=== PATIENT | male | born 1995 | race Caucasian/White ===

== ENCOUNTER 2016-10-09 13:06 | Observation (INO) | payer OTHER ==
--- NOTE | ~2016-10-09 | DS ---
Unit #: [id number] #: [id number] Patient: ELVIRA GASTELUM [id number] [address] [address] [id number] I MR#: [id number] NAME: ELVIRA GASTELUM ROOM: 229 Age: 21 Sex: M Admission Date: 10/09/2016 : 1995 Discharge Date: 10/11/2016 Attending Physician: Ovidio Negrete M.D. Referring Physician: Marcy Macias M.D. Primary Care Physician: Primary Care Physician No DISCHARGE SUMMARY ADDENDUM After the patient was discharged, the patient had an additional episode of vomiting and discharge was held. Dr. Martinez of Psychiatry was consulted for the patient's ongoing addiction to marijuana causing the hyperemesis. Dr. Martinez had recommended outpatient gallery assistant program to assist with the marijuana abuse and had prescribed Vistaril 25 mg orally t.i.d., prescription for 90 was given as well as Thorazine 25 mg orally b.i.d., prescription for 60 was given. The following day, the patient stated that he was still having vomiting, although there was no witnessed vomiting. The patient's lab remained unremarkable except for potassium that was slightly low at 3.1. The patient received 40 mEq for replacement and had received further advancement of his diet. The patient will be discharged home. Discharged to follow up with his family doctor. Follow up with Dr. Bonds, calibration technician and to be compliant with the outpatient marijuana usage. DISCHARGE CONDITION Stable. DISCHARGE MEDICATIONS As stated above with the addition of Vistaril and Thorazine. Dictated by... Khushbu Noel PA-C for Yeyo Upton/kamilah TD: 10/12/2016 07:32 JOB #: [id number] DISCHARGE SUMMARY Page 1 of 1 X X DISCHARGE SUMMARY
--- NOTE | ~2016-10-09 | DS ---
Unit #: [id number] #: [id number] Patient: ELVIRA GASTELUM [id number] [address] [address] [id number] I MR#: [id number] NAME: ELVIRA GASTELUM ROOM: 229 Age: 21 Sex: M Admission Date: 10/09/2016 : 1995 Discharge Date: Attending Physician: Ovidio Negrete M.D. Referring Physician: Marcy Macias M.D. DISCHARGE SUMMARY DISCHARGE DIAGNOSES 1. Cyclic nausea and vomiting. 2. Abdominal pain. 3. Marijuana usage. 4. Gastroesophageal reflux disease. 5. Leukocytosis. PROCEDURES None. CONSULTANTS None. DIAGNOSTIC STUDIES LABORATORY RESULTS: On the day of discharge, the patient's lab include glucose of 108, BUN 11, creatinine 0.9, sodium 138, potassium 3.7, chloride 108, CO2 of 20, calcium 8.8, total protein 6.4, albumin 3.9, total bilirubin 0.8, AST was 16, ALT 20, alkaline phosphatase 66. Lipase 45. CBC: WBC 14.6, RBC 5.02, hemoglobin 14.3, hematocrit 43.9, MCV 87.4, MCH is 28.5, MCHC 32.6, RDW is 13.7, platelets 322, MPV 8.5. Urinalysis unremarkable. Urine drug screen was positive for marijuana only. Blood culture at this time has no growth. Urine culture at this time has no growth. HOSPITAL COURSE The patient is a 21-year-old male with past medical history of cyclical vomiting, GERD, who was transferred from [facility] due to intractable vomiting. The patient states that the vomiting started on day of admission and apparently had smoked marijuana. He has had 7 to 8 bouts of nonbloody emesis. He also reports cramping abdominal pain symptoms similar to when he had smoked marijuana in the past. In the emergency department, he was given 10 mg of Reglan, 2 L of saline, 8 mg of Zofran, 25 mg of Phenergan, 25 mg of Benadryl, and 1 mg of Ativan, and was transferred to [facility] for high level care. The patient was treated conservatively for nausea, vomiting, abdominal pain. His labs are all unremarkable as detailed above. Both Dr. Monzon and myself counseled the patient with regard to cannabis-induced nausea and vomiting, and he voiced understanding. He does admit to thinking that this is the cause of his vomiting and states that he is trying to quit and he will continue to try. At this time, the patient is tolerating a clear liquid. I am advancing him to a low-residue diet. If the patient tolerates the diet, the patient will be discharged home. The patient tells me that he does follow up with Dr. Johny Bonds outpatient and we Unit #: [id number] #: [id number] Patient: ELVIRA GASTELUM will make a followup appointment with him. Discharge condition is stable. Discharge diet, resumes regular diet as was prior to hospitalization. Activities, no restriction on activities. Ambulate everyday as tolerated. DISCHARGE MEDICATIONS Protonix 40 mg orally daily; Zofran 4 mg orally dissolving tablets every 6 hours as needed for nausea, vomiting, prescription for 16 was given. Dictated by... Khushbu Noel PA-C for Yeyo Upton/kamilah TD: 10/11/2016 02:54 JOB #: [id number] DISCHARGE SUMMARY Page 1 of 1 X X DISCHARGE SUMMARY
--- NOTE | ~2016-10-09 | CO ---
Unit #: [id number] #: [id number] Patient: GEO LANCASTER [id number] [facility] [address] [address] [facility]. [place], [place] [address] [id number] I MR#: [id number] NAME: EGO LANCASTER ROOM: 229 Age: 21 Sex: M Admission Date: 10/09/2016 : 1995 Attending Physician: Ovidio Negrete M.D. Primary Care Physician: No Primary Care Physician Consultation Date: 10/11/2016 CONSULTATION REPORT REASON FOR CONSULTATION Marijuana abuse, vomiting, anxiety. HISTORY OF PRESENT ILLNESS Mr. Geo Lancaster is a 21-year-old male seen on 10/11/16 in room 229 at [facility] with the chief complaint of marijuana abuse, vomiting, anxiety. The patient reported that he just threw up recently, having dry heaves and vomiting. The patient admitted using marijuana on a daily basis. The patient reported history of cyclical vomiting, GERD. The patient also reported having severe anxiety but denied any suicidal or homicidal ideation. Denied any psychotic symptoms. PAST PSYCHIATRIC HISTORY Remarkable for history of cannabis abuse and severe anxiety. No history of any inpatient treatment or suicidal attempt. MEDICAL HISTORY Remarkable for history of cyclical vomiting and GERD. MEDICATIONS None. FAMILY HISTORY/SOCIAL HISTORY Good support system. No history of any abuse but history of substance abuse, as mentioned above. REVIEW OF SYSTEMS A complete review of systems is remarkable for vomiting, anxiety. MENTAL STATUS EXAMINATION General appearance - Patient is dressed casually. Attention span, concentration - Fair. Speech - Regular rate, coherent. Oriented to time, place and person. Mood and affect - Sad, dysphoric. Thought process - Coherent. Thought content - The patient denied any thoughts of harming self or others or any psychotic symptoms. Recent and remote memory - Poor. Language - Able to name objects, repeat phrases. Fund of knowledge - Fair. Insight and judgment - Fair to slightly impaired. DIAGNOSIS 1. PSYCHIATRIC: Cannabis abuse, severe, F12.20; anxiety disorder, NOS, agoraphobia with panic disorder, F40.01. 2. SECONDARY DIAGNOSIS: Deferred 3. MEDICAL DIAGNOSIS: Cyclical vomiting, GERD. 4. STRESSOR: Psychosocial stressors. (1) . Unit #: [id number] #: [id number] Patient: GEO LANCASTER ASSESSMENT AND PLAN 1. Supportive psychotherapy and psychoeducation provided to the patient. 2. Educated about benefits and side effects of medication and course and prognosis of illness. 3. Advised Vistaril 25 mg t.i.d. for anxiety and Thorazine 25 mg b.i.d. to help with mood symptoms, as well as vomiting. The patient was advised to follow up at CDIP program at [facility] and also given the Crisis Line number, [phone]. Please feel free to call with any questions, telephone number . Dictated by... Yeyo Dimas/joe TD: 10/13/2016 15:14 JOB #: [id number] CONSULTATION REPORT Page 1 of 1 X Nam Martinez MD X CONSULTATION REPORT
--- NOTE | ~2016-10-09 | HP ---
Unit #: [id number] #: [id number] Patient: ELVIRA GASTELUM [id number] [facility] [address]. [place], [place] [address] [id number] I MR#: [id number] NAME: ELVIRA GASTELUM ROOM: 229 Age: 21 Sex: M Admission Date: 10/09/2016 : 1995 Attending Physician: Jyotsna Monzon M.D. Referring Physician: Marcy Macias M.D. Primary Care Physician: Primary Care Physician No HISTORY AND PHYSICAL CHIEF COMPLAINT Vomiting today. HISTORY OF PRESENT ILLNESS The patient is a 21-year-old male with past medical history of cyclic vomiting, GERD, who presented to [facility] for evaluation of the above. The patient states that he started vomiting this morning. He apparently smoked marijuana yesterday. He reports 7 to 8 bouts of nonbloody emesis. He also reports crampy abdominal pain. These symptoms are similar to when he has smoked marijuana in the past. In the emergency department, he was given 10 mg of Reglan, 2 liters of normal saline, a total of 8 mg of Zofran, 25 mg of Phenergan, 25 mg of Benadryl, and 1 mg of Ativan. He was transferred to [facility] for admission. PAST MEDICAL HISTORY 1. Admission to [facility] 07/05 through 07/06/2016 for intractable nausea and vomiting secondary to cyclic vomiting with marijuana hyperemesis and GERD contributing. 2. Cyclic vomiting. 3. GERD. PAST SURGICAL HISTORY EGD at [facility] (no records). ALLERGIES No known allergies. HOME MEDICATIONS Protonix 40 mg daily. SOCIAL HISTORY The patient lives with his girlfriend. He smokes marijuana. 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 FAMILY HISTORY Notable for his mother having diabetes. REVIEW OF SYSTEMS A complete review of systems is negative except as indicated in the HPI. The patient states that showering alleviates some of the nausea and Unit #: [id number] #: [id number] Patient: ELVIRA GASTELUM vomiting. PHYSICAL EXAMINATION VITAL SIGNS: Temperature 97.5, pulse 78, respirations 18, blood pressure 135/76. GENERAL: The patient is a male who is sleeping but wakes to voice. HEENT: Head is atraumatic. Mucous membranes are dry. NECK: Supple. Trachea is midline. LUNGS: Clear to auscultation bilaterally with no increased work of breathing. HEART: Regular rate and rhythm. ABDOMEN: Soft. He is mildly tender to palpation in the epigastric area. Bowel sounds present in all four quadrants. EXTREMITIES: Nontender with no pedal edema. NEUROLOGIC: Patient is awake and alert. He follows commands. PSYCHIATRIC: Mood and affect are normal. Patient is cooperative. SKIN OF EXAMINED AREAS: Warm and dry. DIAGNOSTIC STUDIES LABORATORY: Complete blood count notable for white blood cell count of 16.4, hemoglobin 17.4, hematocrit 52.3. Comprehensive metabolic panel notable for a glucose of 143, total protein 8.8, albumin 5.3, lipase 45. ASSESSMENT The patient is a 21-year-old male with: 1. Intractable nausea and vomiting. 2. Abdominal pain. 3. History of cyclic vomiting secondary to marijuana hyperemesis and gastroesophageal reflux disease. 4. Gastroesophageal reflux disease. 5. Marijuana use. 6. Leukocytosis. I suspect the patient is dehydrated. I do not see any source of infection. PLAN 1. Admit for observation to med-surg. 2. N.p.o. and will advanced to clear liquids as tolerated. 3. P.r.n. Zofran. 4. P.r.n. Phenergan. 5. P.r.n. Toradol. 6. assistant food service managermanager of production consult regarding marijuana use. 7. Check urinalysis and urine toxicology screen. 8. SCDs for DVT prophylaxis. 9. Repeat labs in the morning. 10. Additional workup and consultants based on above. 11. I encouraged marijuana cessation. Dictated by Jyotsna Monzon M.D. Unit #: [id number] #: [id number] Patient: ELVIRA GASTELUM SOURAV/irene TD: 10/09/2016 21:26 JOB #: [id number] HISTORY AND PHYSICAL Page 1 of 1 X Jyotsna Monzon MD HISTORY AND PHYSICAL
[2016-10-09 12:42] LABS: BASOPHIL# 0.1 X10e3 (0-0.3); BASOPHIL% 0.5 % (0-2.5); EOSINOPHIL# 0.1 X10e3 (0-0.7); EOSINOPHIL% 0.6 % (0.0-7.0); HEMATOCRIT 52.3 % (38.0-50.0); HEMOGLOBIN 17.4 gm/dL (13.0-16.0); LYMPHOCYTE# 1.8 X10e3 (1.0-3.5); LYMPHOCYTE% 11.2 % (17.0-45.0); MEAN CELL VOLUME 86.4 FL (83-96); MEAN CORPUSCULAR HEMOGLOBIN 28.8 PG (28-34); MEAN CORPUSCULAR HGB CONC 33.3 g/dL (30-36); MEAN PLATELET VOLUME 8.3 FL (6.5-11.5); MONOCYTE# 0.7 X10e3 (0-1.0); MONOCYTE% 4.4 % (3.0-12.0); NEUTROPHIL# 13.7 X10e3 (1.5-7.1); NEUTROPHIL% 83.3 % (40-75); PLATELET COUNT 333 X10e3 (140-420); RED BLOOD COUNT 6.05 X10e (3.90-5.60); RED CELL DISTRIBUTION WIDTH 13.8 % (11.0-15.5); WHITE BLOOD COUNT 16.4 X10e3 (4.0-10.5)
[2016-10-09 12:47] LABS: DIFF IND NO
[2016-10-09 13:01] LABS: ALBUMIN SERUM 5.3 g/dL (3.5-5.0); BILIRUBIN, DIRECT 0.1 mg/dL (0.0-0.2); BILIRUBIN,INDIRECT 0.6 mg/dL (0.0-0.9); BILIRUBIN,TOTAL 0.7 mg/dL (0.2-2.0); BUN/CREATININE RATIO 16.66; CALCIUM SERUM 9.5 mg/dL (8.4-10.2); CREATININE SERUM 0.9 mg/dL (0.6-1.4); GLOM FILT RATE Estimated 120.8 mL/min (>60); POTASSIUM 4.1 mmol/L (3.5-5.1); PROTEIN TOTAL SERUM 8.8 g/dL (6.0-8.3)
[~2016-10-09 13:06] MED LIST: ACETAMINOPHEN PO; PHENERGAN25 M1 DOB; PHENERGAN25 M1 PO; PROTONIX PO; PROTONIX20 MG PO; ZOFRAN PO
[2016-10-10 01:39] LABS: URINE SOURCE CLEAN CATCH
[2016-10-10 01:44] LABS: URINE APPEARANCE CLEAR; URINE BILIRUBIN NEG (NEG); URINE BLOOD NEG (NEG); URINE COLOR YELLOW; URINE GLUCOSE NEG (NEG); URINE KETONE 3+ (NEG); URINE LEUKOCYTE ESTERASE NEG (NEG); URINE NITRATE NEG (NEG); URINE PH 5.5 (5-8); URINE PROTEIN NEG (NEG); URINE SPECIFIC GRAVITY 1.023 (1.003-1.035); URINE UROBILINOGEN 0.2 MG/DL (NEG)
[2016-10-10 01:54] LABS: AMPHETAMINE NEG (NEG); BARBITURATES NEG (NEG); BENZODIAZEPINES NEG (NEG); COCAINE NEG (NEG); MARIJUANA POS (NEG); OPIATES NEG (NEG); TRICYCLIC ANTIDEPRESSANTS NEG (NEG); U METHADONE NEG (NEG)
[2016-10-10 05:58] LABS: BASOPHIL% 0.3 % (0-2.5); HEMATOCRIT 43.9 % (38.0-50.0); LYMPHOCYTE# 1.5 X10e3 (1.0-3.5); LYMPHOCYTE% 10.2 % (17.0-45.0); MEAN CELL VOLUME 87.4 FL (83-96); MEAN CORPUSCULAR HEMOGLOBIN 28.5 PG (28-34); MEAN CORPUSCULAR HGB CONC 32.6 g/dL (30-36); MEAN PLATELET VOLUME 8.5 FL (6.5-11.5); MONOCYTE% 6.9 % (3.0-12.0); NEUTROPHIL# 12.1 X10e3 (1.5-7.1); NEUTROPHIL% 82.6 % (40-75); PLATELET COUNT 322 X10e3 (140-420); RED BLOOD COUNT 5.02 X10e (3.90-5.60); RED CELL DISTRIBUTION WIDTH 13.7 % (11.0-15.5); WHITE BLOOD COUNT 14.6 X10e3 (4.0-10.5)
[2016-10-10 06:01] LABS: HEMOGLOBIN 14.3 gm/dL (13.0-16.0)
[2016-10-10 06:02] LABS: DIFF IND NO
[2016-10-10 06:48] LABS: ALBUMIN SERUM 3.9 g/dL (3.5-5.0); BILIRUBIN,TOTAL 0.8 mg/dL (0.2-2.0); BUN/CREATININE RATIO 12.22; CALCIUM SERUM 8.8 mg/dL (8.4-10.2); CREATININE SERUM 0.9 mg/dL (0.6-1.4); GLOM FILT RATE Estimated 120.8 mL/min (>60); POTASSIUM 3.7 mmol/L (3.5-5.1); PROTEIN TOTAL SERUM 6.4 g/dL (6.0-8.3)
[2016-10-11 14:52] LABS: HEMATOCRIT 41.3 % (38.0-50.0); HEMOGLOBIN 13.6 gm/dL (13.0-16.0); MEAN CELL VOLUME 86.6 FL (83-96); MEAN CORPUSCULAR HEMOGLOBIN 28.5 PG (28-34); MEAN CORPUSCULAR HGB CONC 32.9 g/dL (30-36); MEAN PLATELET VOLUME 8.2 FL (6.5-11.5); RED BLOOD COUNT 4.77 X10e (3.90-5.60); RED CELL DISTRIBUTION WIDTH 13.7 % (11.0-15.5)
[2016-10-11 15:18] LABS: ALBUMIN SERUM 4.1 g/dL (3.5-5.0); BILIRUBIN,TOTAL 1.6 mg/dL (0.2-2.0); BUN/CREATININE RATIO 12.5; CALCIUM SERUM 8.3 mg/dL (8.4-10.2); CREATININE SERUM 0.8 mg/dL (0.6-1.4); GLOM FILT RATE Estimated 126.9 mL/min (>60); MAGNESIUM 1.6 mg/dL (1.6-3.0); POTASSIUM 3.3 mmol/L (3.5-5.1); PROTEIN TOTAL SERUM 6.5 g/dL (6.0-8.3)
[2016-10-11] MEDS ORDERED: ZOFRAN PO (16:49)
[2016-10-11] MEDS ORDERED: VISTARIL PO (16:50)
[2016-10-11] MEDS ORDERED: PROTONIX PO (16:50)
[2016-10-11] MEDS ORDERED: THORAZINE25 MG PO (16:51)
== END 2016-10-11 17:52 | disposition home or self-care (01) | DRG 103 ==
LOC: SED 13:06 → C2A 19:50
PROVIDERS: Emergency Medicine; Family Medicine; Physician Assistant Medical
DX: G43.A0 Cyclical vomiting, in migraine, not intractable (principal); R10.9 Unspecified abdominal pain; F12.20 Cannabis dependence, uncomplicated; F40.01 Agoraphobia with panic disorder; K21.9 Gastro-esophageal reflux disease without esophagitis; D72.829 Elevated white blood cell count, unspecified; Z79.899 Other long term (current) drug therapy
CPT/HCPCS: 36415; 80048; 80053; 80076; 80307; 81003; 83690; 83735; 85025; 85027; 87086; 96361; 96372; 96374; 96375; 96376; 99285; C9113; G0378; J1200; J1885; J2060; J2405; J2550; J2765

== ENCOUNTER 2016-10-12 13:12 | Emergency (ER) | payer OTHER ==
[~2016-10-12 13:12] MED LIST changes: +THORAZINE25 MG PO; +VISTARIL PO
== END 2016-10-12 17:00 | disposition home or self-care (01) ==
LOC: CED 13:12 → CFTX 15:57
DX: Z53.21 Procedure and treatment not carried out due to patient leaving prior to being seen by health care provider (principal)

== ENCOUNTER 2016-12-03 11:27 | Emergency (ER) | payer OTHER ==
[2016-12-03 11:59] LABS: BASOPHIL# 0.1 X10e3 (0-0.3); BASOPHIL% 0.7 % (0-2.5); EOSINOPHIL# 0.1 X10e3 (0-0.7); EOSINOPHIL% 0.4 % (0.0-7.0); HEMATOCRIT 47.5 % (38.0-50.0); HEMOGLOBIN 15.8 gm/dL (13.0-16.0); LYMPHOCYTE# 2.2 X10e3 (1.0-3.5); LYMPHOCYTE% 13.3 % (17.0-45.0); MEAN CELL VOLUME 86.7 FL (83-96); MEAN CORPUSCULAR HEMOGLOBIN 28.8 PG (28-34); MEAN CORPUSCULAR HGB CONC 33.2 g/dL (30-36); MEAN PLATELET VOLUME 8.3 FL (6.5-11.5); MONOCYTE# 0.7 X10e3 (0-1.0); MONOCYTE% 4.5 % (3.0-12.0); NEUTROPHIL# 13.3 X10e3 (1.5-7.1); NEUTROPHIL% 81.1 % (40-75); PLATELET COUNT 375 X10e3 (140-420); RED BLOOD COUNT 5.48 X10e (3.90-5.60); RED CELL DISTRIBUTION WIDTH 13.8 % (11.0-15.5); WHITE BLOOD COUNT 16.4 X10e3 (4.0-10.5)
[2016-12-03 12:21] LABS: DIFF IND NO
[2016-12-03 12:22] LABS: BILIRUBIN, DIRECT 0.1 mg/dL (0.0-0.2); BILIRUBIN,INDIRECT 0.6 mg/dL (0.0-0.9); BILIRUBIN,TOTAL 0.7 mg/dL (0.2-2.0); BUN/CREATININE RATIO 17.5; CALCIUM SERUM 9.2 mg/dL (8.4-10.2); CREATININE SERUM 0.8 mg/dL (0.6-1.4); GLOM FILT RATE Estimated 126.9 mL/min (>60); POTASSIUM 3.8 mmol/L (3.5-5.1); PROTEIN TOTAL SERUM 7.9 g/dL (6.0-8.3)
== END 2016-12-03 13:21 | disposition home or self-care (01) ==
LOC: SED 11:27
PROVIDERS: Emergency Medicine
DX: R11.2 Nausea with vomiting, unspecified (principal); F17.200 Nicotine dependence, unspecified, uncomplicated
CPT/HCPCS: 36415; 80048; 80076; 83690; 85025; 96361; 96374; 99284; J0780

== ENCOUNTER 2016-12-05 10:08 | Emergency (ER) | payer OTHER ==
--- NOTE | ~2016-12-05 | US67 ---
[facility] A Service of [facility] RADIOLOGY TEXT RESULTS PATIENT: ELVIRA GASTELUM LOCATION: [facility] : [birth year] UNIT #: [id number] AGE: [address]: Pro Kimble MD SEX: M ORDER DR: [id number] [id number] [facility] [address] [place], [place] [address] [id number] E MR#: [id number] Acc #: [id number] NAME: ELVIRA GASTELUM : 1995 SEX: M STUDY DATE/TIME: 12/05/2016 12:36 UNIT: [facility] ROOM: STUDY DESCRIPTION: Gallbladder Attending Physician: Pro Kimble M.D. Ordering Physician: Pro Kimble M.D. Primary Care Physician: No Primary Care Physician MEDICAL IMAGING REPORT This report is preliminary unless electronic signature is present EXAM Gallbladder ultrasound 12/05/2016 HISTORY Nausea vomiting for 3 days. Patient states vomiting blood. ] FINDINGS Real-time ultrasonography of the right upper quadrant performed. Comparison to CT abdomen and pelvis 02/16/2016. Visualized pancreas unremarkable. Some portions of pancreatic tail obscured by bowel gas artifact. Liver measures about 14.23 cm in craniocaudal extent. It appears normal in size, contour and echotexture. Right kidney measures 10.56 cm in greatest length. No hydronephrosis, nephrolithiasis, cystic or solid mass lesion. No perinephric fluid collection. Gallbladder is normal in volume. No gallstones. No pericholecystic fluid or gallbladder wall thickening. Gallbladder wall measures approximately 1.4 mm in thickness. No intra or extrahepatic biliary ductal dilatation. Common bile duct measures 1.4 mm in diameter. The portal vein is patent with normal direction of flow. IMPRESSION 1. Liver, gallbladder, right kidney, and pancreas are normal in appearance in their visualized extent. Some portions of the pancreatic tail are obscured by bowel gas artifact. If it would assist in management, pancreas could be further evaluated with CT. 2. No abnormal fluid collections. Dictated by... Cosmo Strong M.D. THIS IS AN ELECTRONICALLY VERIFIED REPORT [facility] A Service of [facility] RADIOLOGY TEXT RESULTS PATIENT: ELVIRA GASTELUM LOCATION: [facility] : [birth year] UNIT #: [id number] AGE: [address]: Pro Kimble MD SEX: M ORDER DR: Cosmo Strong M.D. at 12/06/2016 7:14 PM CRESENCIO/michelle TD: 12/05/2016 14:17 JOB #: [id number] MEDICAL IMAGING REPORT Page 1 of 1 COPY
[2016-12-05 10:52] LABS: BASOPHIL# 0.1 X10e3 (0-0.3); BASOPHIL% 0.4 % (0-2.5); DIFF IND YES; EOSINOPHIL# 0.1 X10e3 (0-0.7); EOSINOPHIL% 0.6 % (0.0-7.0); HEMATOCRIT 47.8 % (38.0-50.0); HEMOGLOBIN 16.1 gm/dL (13.0-16.0); LYMPHOCYTE# 3.3 X10e3 (1.0-3.5); MEAN CELL VOLUME 85.2 FL (83-96); MEAN CORPUSCULAR HEMOGLOBIN 28.7 PG (28-34); MEAN CORPUSCULAR HGB CONC 33.6 g/dL (30-36); MEAN PLATELET VOLUME 8.1 FL (6.5-11.5); MONOCYTE# 1.3 X10e3 (0-1.0); MONOCYTE% 6.4 % (3.0-12.0); NEUTROPHIL# 14.9 X10e3 (1.5-7.1); NEUTROPHIL% 75.6 % (40-75); PLATELET COUNT 396 X10e3 (140-420); RED BLOOD COUNT 5.61 X10e (3.90-5.60); RED CELL DISTRIBUTION WIDTH 13.7 % (11.0-15.5); WHITE BLOOD COUNT 19.7 X10e3 (4.0-10.5)
[2016-12-05 11:11] LABS: ALBUMIN SERUM 4.9 g/dL (3.5-5.0); BILIRUBIN, DIRECT 0.3 mg/dL (0.0-0.2); BILIRUBIN,INDIRECT 2.5 mg/dL (0.0-0.9); BILIRUBIN,TOTAL 2.8 mg/dL (0.2-2.0); CALCIUM SERUM 9.3 mg/dL (8.4-10.2); CREATININE SERUM 1.2 mg/dL (0.6-1.4); GLOM FILT RATE Estimated 85.3 mL/min (>60); POTASSIUM 3.2 mmol/L (3.5-5.1); PROTEIN TOTAL SERUM 8.1 g/dL (6.0-8.3)
[2016-12-05 11:22] LABS: PLATELET ESTIMATE NORMAL (NORMAL)
== END 2016-12-05 14:39 | disposition home or self-care (01) ==
LOC: CED 10:08
DX: R11.2 Nausea with vomiting, unspecified (principal); F17.200 Nicotine dependence, unspecified, uncomplicated
CPT/HCPCS: 36415; 76705; 80048; 80076; 83690; 85025; 96361; 96374; 99284; J2405

== ENCOUNTER 2017-02-01 18:31 | Observation (INO) | payer OTHER ==
[~2017-02-01] VITALS: Ht 167.6 cm; Wt 77.0 kg
--- NOTE | ~2017-02-01 | HP ---
Unit #: [id number] #: [id number] Patient: ELVIRA GASTELUM [id number] [address] [address] [id number] I MR#: [id number] NAME: ELVIRA GASTELUM ROOM: 331 Age: 21 Sex: M Admission Date: 02/01/2017 : 1995 Attending Physician: Ovidio Negrete M.D. Primary Care Physician: No Primary Care Physician HISTORY AND PHYSICAL CHIEF COMPLAINT Nausea, vomiting. DISCUSSION This is a 21-year-old gentleman who has a past medical history significant for history of cyclic vomiting, acid reflux, marijuana use, and he has recurrent admissions for nausea, vomiting, secondary to his nausea and vomiting, marijuana hyperemesis. He presented again today to the emergency room with the chief complaint of nausea, vomiting. He was given multiple Zofran, Phenergan with no improvement. Eventually been admitted. He denies fever, chills, cough or any other complaint. Is complaining of some stomach upset and burning in his throat. PAST MEDICAL HISTORY 1. History of recurrent admissions for intractable nausea, vomiting secondary to cyclic vomiting with marijuana hyperemesis. 2. History of GERD. 3. History of leukocytosis. PAST SURGICAL HISTORY History of EGD at [facility]. ALLERGIES No known drug allergies. MEDICATIONS FROM HOME Protonix 40 mg daily. SOCIAL HISTORY The patient lives with his girlfriend. He smokes marijuana. He said he used a couple days ago. 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 He denies alcohol or any other illicit drug use. FAMILY HISTORY Notable for mother having diabetes. REVIEW OF SYSTEMS All review of systems is negative except as in history of present illness. PHYSICAL EXAMINATION GENERAL: Middle-aged man lying in bed comfortably, currently not in any distress. He is alert, awake, oriented x3. CURRENT VITALS: Temp is 97.8, heart rate 85, respirations 20, blood pressure 128/102, oxygen 100% on room air. Unit #: [id number] #: [id number] Patient: ELVIRA GASTELUM HEENT: Pupils are equal and reactive to light. Head is normocephalic and atraumatic. NECK: Neck is supple. No JVD. HEART: S1, S2. Regular rate and rhythm. LUNGS: Lungs are clear to auscultation. No rhonchi. No wheezing. ABDOMEN: Abdomen is soft, nontender, nondistended. Bowel sounds are positive. EXTREMITIES: Inspection is normal. No cyanosis. No clubbing. No edema. NEUROLOGIC: No focal neurologic deficits. He follows commands, moving all extremities. Power 5/5 on both sides. PSYCHIATRIC: Normal mood and affect. Cooperative. SKIN: Warm and dry. DIAGNOSTIC STUDIES LABORATORY WORKUP: White count 25, hemoglobin 16, hematocrit 49, platelets 379. Sodium 138, potassium 3.4, chloride 102, glucose 132, BUN 28, creatinine 1. Bilirubin indirect 1.3, total protein 8.9, albumin 5.5, lipase 22, amylase 28. ASSESSMENT AND PLAN 1. Recurrent nausea, vomiting secondary to cyclic nausea and vomiting secondary to marijuana use. The patient was seen also on last admission by Dr. Martinez. He recommended Vistaril and Thorazine. Will start back on Vistaril 25 mg t.i.d. and Thorazine 25 b.i.d. Liquid diet. IV Protonix, Zofran, Phenergan. 2. History of gastroesophageal reflux disease. 3. Leukocytosis. 4. Deep vein thrombosis prophylaxis. Will place the patient on sequential compression devices. Dictated by Yeyo Shay TD: 02/02/2017 11:55 JOB #: [id number] HISTORY AND PHYSICAL Page 1 of 1 X X HISTORY AND PHYSICAL
--- NOTE | ~2017-02-01 | DS ---
Unit #: [id number] #: [id number] Patient: ELVIRA GASTELUM [id number] [address] [address] [id number] I MR#: [id number] NAME: ELVIRA GASTELUM ROOM: 331 Age: 21 Sex: M Admission Date: 02/01/2017 : 1995 Discharge Date: 02/03/2017 Attending Physician: Saurabh Parry M.D. Referring Physician: Primary Care Physician No Primary Care Physician: Primary Care Physician No DISCHARGE SUMMARY PRIMARY DIAGNOSIS Cyclic vomiting syndrome with intractable nausea and vomiting. SECONDARY DIAGNOSES 1. Marijuana abuse. 2. Leukocytosis, not clinically significant. 3. Gastroesophageal reflux disease. HOSPITAL COURSE The patient was placed in observation status for nausea and vomiting, started on IV fluids and IV antiemetics, as well as Vistaril and Thorazine which has helped him in the past as recommended by Dr. Martinez with psychiatry on his previous hospitalization. The patient showed rapid clinical improvement and was able to be discharged from the hospital the following day. I have counseled him about his marijuana use and he voices understanding that the marijuana is causing the issues and he plans to stay away from marijuana. DISCHARGE DISPOSITION To home. DISCHARGE STATUS Stable. DISCHARGE ACTIVITY Ad jayson. DISCHARGE DIET Unrestricted. DISCHARGE MEDICATIONS Pantoprazole 40 mg p.o. 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 Dictated by... Saurabh Parry M.D. Unit #: [id number] #: [id number] Patient: ELVIRA GASTELUM MARGARET/jorje TD: 02/05/2017 10:38 JOB #: [id number] DISCHARGE SUMMARY Page 1 of 1 X Saurabh Parry MD X DISCHARGE SUMMARY
[2017-02-01 21:09] LABS: BASOPHIL# 0.1 X10e3 (0-0.3); BASOPHIL% 0.3 % (0-2.5); EOSINOPHIL% 0.1 % (0.0-7.0); HEMATOCRIT 49.6 % (38.0-50.0); HEMOGLOBIN 16.5 gm/dL (13.0-16.0); LYMPHOCYTE# 1.7 X10e3 (1.0-3.5); LYMPHOCYTE% 6.7 % (17.0-45.0); MEAN CELL VOLUME 85.9 FL (83-96); MEAN CORPUSCULAR HEMOGLOBIN 28.5 PG (28-34); MEAN CORPUSCULAR HGB CONC 33.2 g/dL (30-36); MEAN PLATELET VOLUME 8.2 FL (6.5-11.5); MONOCYTE# 1.7 X10e3 (0-1.0); MONOCYTE% 6.7 % (3.0-12.0); NEUTROPHIL# 21.6 X10e3 (1.5-7.1); NEUTROPHIL% 86.2 % (40-75); PLATELET COUNT 379 X10e3 (140-420); RED BLOOD COUNT 5.78 X10e (3.90-5.60); WHITE BLOOD COUNT 25.1 X10e3 (4.0-10.5)
[2017-02-01 21:11] LABS: DIFF IND YES
[2017-02-01 21:29] LABS: ALBUMIN SERUM 5.5 g/dL (3.5-5.0); BILIRUBIN, DIRECT 0.2 mg/dL (0.0-0.2); BILIRUBIN,INDIRECT 1.3 mg/dL (0.0-0.9); BILIRUBIN,TOTAL 1.5 mg/dL (0.2-2.0); CALCIUM SERUM 9.8 mg/dL (8.4-10.2); GLOM FILT RATE Estimated 106.4 mL/min (>60); POTASSIUM 3.4 mmol/L (3.5-5.1); PROTEIN TOTAL SERUM 8.9 g/dL (6.0-8.3)
[2017-02-01 21:49] LABS: ANISOCYTOSIS SL; PLATELET ESTIMATE NORMAL (NORMAL)
[2017-02-01] MEDS ORDERED: PANTOPRAZOLE SO40 MG PO (22:57)
[2017-02-02 05:32] LABS: BASOPHIL# 0.1 X10e3 (0-0.3); BASOPHIL% 0.5 % (0-2.5); HEMATOCRIT 43.2 % (38.0-50.0); LYMPHOCYTE# 1.4 X10e3 (1.0-3.5); LYMPHOCYTE% 7.7 % (17.0-45.0); MEAN CORPUSCULAR HEMOGLOBIN 28.5 PG (28-34); MEAN CORPUSCULAR HGB CONC 33.2 g/dL (30-36); MONOCYTE# 1.3 X10e3 (0-1.0); MONOCYTE% 6.9 % (3.0-12.0); NEUTROPHIL# 15.6 X10e3 (1.5-7.1); NEUTROPHIL% 84.9 % (40-75); PLATELET COUNT 290 X10e3 (140-420); RED BLOOD COUNT 5.02 X10e (3.90-5.60); WHITE BLOOD COUNT 18.4 X10e3 (4.0-10.5)
[2017-02-02 05:33] LABS: DIFF IND NO; HEMOGLOBIN 14.3 gm/dL (13.0-16.0)
[2017-02-02 06:08] LABS: BUN/CREATININE RATIO 24.44; CALCIUM SERUM 8.7 mg/dL (8.4-10.2); CREATININE SERUM 0.9 mg/dL (0.6-1.4); GLOM FILT RATE Estimated 120.8 mL/min (>60); MAGNESIUM 2.1 mg/dL (1.6-3.0); POTASSIUM 3.8 mmol/L (3.5-5.1)
[2017-02-03 06:39] LABS: HEMATOCRIT 43.5 % (38.0-50.0); HEMOGLOBIN 14.2 gm/dL (13.0-16.0); MEAN CELL VOLUME 87.4 FL (83-96); MEAN CORPUSCULAR HEMOGLOBIN 28.5 PG (28-34); MEAN CORPUSCULAR HGB CONC 32.6 g/dL (30-36); MEAN PLATELET VOLUME 8.1 FL (6.5-11.5); RED BLOOD COUNT 4.98 X10e (3.90-5.60); RED CELL DISTRIBUTION WIDTH 14.1 % (11.0-15.5)
[2017-02-03 07:25] LABS: BUN/CREATININE RATIO 19.09; CALCIUM SERUM 9.2 mg/dL (8.4-10.2); CREATININE SERUM 1.1 mg/dL (0.6-1.4); GLOM FILT RATE Estimated 94.8 mL/min (>60); POTASSIUM 3.8 mmol/L (3.5-5.1)
== END 2017-02-03 16:13 | disposition home or self-care (01) | DRG 103 ==
LOC: CED 18:31 → CEDOF 23:20 → CED 23:27 → CEDOF 23:27 → C3A PCU 02-02 07:45 → CEDOF 02-02 07:45 → C3A PCU 02-02 07:45
PROVIDERS: Emergency Medicine; Internal Medicine; Internal Medicine Endocrinology, Diabetes & Metabolism
DX: G43.A0 Cyclical vomiting, in migraine, not intractable (principal); T40.7X5A Adverse effect of cannabis (derivatives), initial encounter; K21.9 Gastro-esophageal reflux disease without esophagitis; Z79.899 Other long term (current) drug therapy; D72.829 Elevated white blood cell count, unspecified; I82.409 Acute embolism and thrombosis of unspecified deep veins of unspecified lower extremity
CPT/HCPCS: 36415; 80048; 80076; 82150; 83690; 83735; 85025; 85027; 96374; 96375; 96376; 99284; C9113; G0378; J2405; J2550

== ENCOUNTER 2017-02-04 14:31 | Emergency (ER) | payer OTHER ==
[~2017-02-04 14:31] MED LIST changes: +PANTOPRAZOLE SO40 MG PO
== END 2017-02-04 16:26 | disposition home or self-care (01) ==
LOC: SED 14:31
DX: R11.2 Nausea with vomiting, unspecified (principal)
CPT/HCPCS: 96372; 99284; J3230

== ENCOUNTER 2017-03-09 15:10 | Emergency (ER) | payer OTHER ==
[~2017-03-09] VITALS: Ht 167.6 cm; Wt 72.6 kg
[2017-03-09 16:57] LABS: BASOPHIL# 0.1 X10e3 (0-0.3); BASOPHIL% 0.4 % (0-2.5); HEMATOCRIT 47.4 % (38.0-50.0); LYMPHOCYTE% 5.7 % (17.0-45.0); MEAN CELL VOLUME 86.2 FL (83-96); MEAN CORPUSCULAR HEMOGLOBIN 29.1 PG (28-34); MEAN CORPUSCULAR HGB CONC 33.8 g/dL (30-36); MEAN PLATELET VOLUME 8.2 FL (6.5-11.5); MONOCYTE# 0.4 X10e3 (0-1.0); MONOCYTE% 2.6 % (3.0-12.0); NEUTROPHIL# 15.7 X10e3 (1.5-7.1); NEUTROPHIL% 91.3 % (40-75); PLATELET COUNT 397 X10e3 (140-420); RED BLOOD COUNT 5.49 X10e (3.90-5.60); RED CELL DISTRIBUTION WIDTH 14.3 % (11.0-15.5); WHITE BLOOD COUNT 17.2 X10e3 (4.0-10.5)
[2017-03-09 16:58] LABS: DIFF IND YES
[2017-03-09 17:16] LABS: ALBUMIN SERUM 5.4 g/dL (3.5-5.0); BILIRUBIN, DIRECT 0.1 mg/dL (0.0-0.2); BILIRUBIN,INDIRECT 1.2 mg/dL (0.0-0.9); BILIRUBIN,TOTAL 1.3 mg/dL (0.2-2.0); BUN/CREATININE RATIO 21.25; CALCIUM SERUM 9.8 mg/dL (8.4-10.2); CREATININE SERUM 0.8 mg/dL (0.6-1.4); GLOM FILT RATE Estimated 126.9 mL/min (>60); PROTEIN TOTAL SERUM 8.6 g/dL (6.0-8.3)
[2017-03-09 17:26] LABS: ANISOCYTOSIS SL; PLATELET ESTIMATE NORMAL (NORMAL)
[2017-03-09 19:31] LABS: URINE SOURCE CLEAN CATCH
[2017-03-09 19:40] LABS: URINE APPEARANCE CLEAR; URINE BILIRUBIN NEG (NEG); URINE BLOOD NEG (NEG); URINE COLOR YELLOW; URINE GLUCOSE NEG (NEG); URINE KETONE 3+ (NEG); URINE LEUKOCYTE ESTERASE NEG (NEG); URINE NITRATE NEG (NEG); URINE PH 5.5 (5-8); URINE PROTEIN TRACE (NEG); URINE SPECIFIC GRAVITY 1.028 (1.003-1.035); URINE UROBILINOGEN 0.2 MG/DL (NEG)
[2017-03-09 19:46] LABS: AMPHETAMINE NEG (NEG); BARBITURATES NEG (NEG); BENZODIAZEPINES NEG (NEG); COCAINE NEG (NEG); MARIJUANA POS (NEG); OPIATES NEG (NEG); TRICYCLIC ANTIDEPRESSANTS NEG (NEG); U METHADONE NEG (NEG)
== END 2017-03-09 21:16 | disposition home or self-care (01) ==
LOC: CED 15:10
PROVIDERS: Emergency Medicine
DX: F12.929 Cannabis use, unspecified with intoxication, unspecified (principal); R11.10 Vomiting, unspecified; F17.210 Nicotine dependence, cigarettes, uncomplicated; Z79.899 Other long term (current) drug therapy
CPT/HCPCS: 36415; 80048; 80076; 80307; 81003; 83690; 85025; 96361; 96374; 96375; 99284; J1200; J2550; J2765

== ENCOUNTER 2017-03-10 17:18 | Emergency (ER) | payer OTHER ==
[~2017-03-10] VITALS: Ht 167.6 cm; Wt 72.6 kg
== END 2017-03-10 18:51 | disposition home or self-care (01) ==
LOC: CFTX 17:18 → CED 17:18 → CFTX 17:54
DX: F12.10 Cannabis abuse, uncomplicated (principal); D72.829 Elevated white blood cell count, unspecified
CPT/HCPCS: 36415; 96372; 99284; J2550